=== PATIENT | female | born 1970 | race Caucasian/White ===

== ENCOUNTER 2018-03-15 14:01 | Emergency (ER) | payer SELFPAY ==
[2018-03-15 14:13] VITALS: BP 185/83; BMI 45.4
--- NOTE | 2018-03-15 14:38 | DR.HYPOGLY ---
HPI - Time Seen Time seen: 14:35 - PCP Primary Care Physician: NATALIE GÓMEZ - Complaint Chief Complaint Doctors Comments: Patient with a history of hyperglycemia not being controlled with diet and on metformin. Chief Complaint:: PT WAS PLACED ON METFROMIN 3 YEARS AGO S/P KNEE REPLACEMENT AND PT STATES " I HAVE BEEN TAKING THESES MEDS AND GETTING REFILL'S AND I HAVE BEEN THIRSTY, BLURRED VISION AND I BOUGHT A BLOOD SUGAR MACHINE ON SUNDAY AND BLOOD SUGARS HAVE BEEN FLUCUTING BETWEEN 400-600 "..BR Self Treatment fo Chief Complaint: REGULAR DOSE OF MEFORMIN, - Source History Provided: Patient - Mode of Arrival Mode of Arrival: Ambulatory - Timing Onset of Chief Complaint: 03/12/18 PMH - PMH Past Medical History: Yes Past Medical History: Diabetes, Hypertension Past Surgical History: Yes Surgical History: [employer] Surgery, Ortho Surgery Past Surgical History Comment: LEFT KNEE REPLACEMENT. - Family History History of Family Medical Conditions: Yes Family Medical History: Diabetes Mellitus, Cancer, OR, Heart Failure, Hypertension Family Medical History Comment: HEART, - Social History Does patient currently use any type of tobacco product: No Have you used tobacco products in the last 12 months: No Type of Tobacco Use: None Does any household member use tobacco: No Alcohol Use: None Do you use any recreational Drugs:: No Lives With: Family Lives Where: Home - infectious screening In the last 2 months have you had wt loss of >10#?: NO Have you had fever, night sweats or hemotysis?: No Have you traveled outside the country in the last 6 months?: No Isolation: Standard ROS - Review of Systems Eyes: No Symptoms Reported ENTM: No Symptoms Reported Respiratoy: No Symptoms Reported Cardiovascular: No Symptoms Reported Gastrointestinal/Abdominal: No Symptoms Reported Genitourinary: No Symptoms Reported Neurological: No Symptoms Reported Musculoskeletal: No Symptoms Reported Integumentary: No Symptoms Reported Hematologic/Lymphatic: No Symptoms Reported Endocrine: No Symptoms Reported Psychiatric: No Symptoms Reported All Other Systems: Reviewed and Negative PE - Vital Signs Vitals: Temperature 98.2 F Pulse Rate 70 Respiratory Rate 20 Blood Pressure [Left Arm] 155/85 Blood Pressure [Right Arm] 139/62 Blood Pressure 185/83 O2 Sat by Pulse Oximetry 95 - General Limitations: No Limitations General Appearance: Alert - Eyes Eye exam: Normal Appearance, PERRL, EOMI Pupils: Regular, Round: Bilateral Sclera/Conjunctival: Normal Inspection: Bilateral - ENT ENT Exam: Normal Exam, Normal Oropharynx Nose Exam: Normal Nose Exam Mouth Exam: Normal Inspection Throat Exam: Normal Inspection - Neck Neck Exam: Normal Inspection - Chest Chest Inspection: Normal Inspection - Respiratory Respiratory Exam: Normal Lung Sounds Bilat Respiratory Exam: Bilateral Clear to Auscultation - Cardiovascular Cardiovascular Exam: Regular Rate, Normal Rhythm - Abdominal Exam Abdominal Exam: Normal Inspection, Normal Bowel Sounds Abdominal Tenderness: negative: RUQ, RLQ, LUQ, LLQ, Epigastrium, Suprapubic, Diffuse, Mild, Moderate, Severe, Other - Extremities Extremities Exam: Normal Inspection, Full ROM - Back Back Exam: Normal Inspection, Full ROM - Neurologic Neurological Exam: Alert, Oriented X3, CN II-XII Intact Cranial Nerve Exam: EOM Function (II, III, IV, ): Normal Cerebellar Function: Finger to Nose: Normal Cerebellar Function: Normal Gait, Wide-Based Gait Motor Strength - LUE: 3/5 Motor Strength - RUE: 3/5 Motor Strength - LLE: 3/5 Sensory Exam Upper Extremity: Light Touch: Normal Sensory Exam Lower Extremity: Light Touch: Normal DTR: achilles tendon (L): 2+ - Psychiatric Psychiatric Exam: Normal Affect, Normal Mood - Skin Skin Exam: Warm, Dry, Intact ROR - Labs Reviewed Result Diagrams: 03/15/18 14:41 03/15/18 14:41 Laboratory: WBC 7.3 X10^3/uL (3.6-10.0) 03/15/18 14:41 RBC 5.09 X10^6/uL (3.5-5.4) 03/15/18 14:41 Hgb 16.0 g/dL (12.0-16.0) 03/15/18 14:41 Hct 46.3 % (36.0-47.0) 03/15/18 14:41 MCV 90.9 fL (80.0-100.0) 03/15/18 14:41 MCH 31.5 pg (27.0-34.0) 03/15/18 14:41 MCHC 34.6 g/dL (33.0-35.0) 03/15/18 14:41 RDW 12.7 % (11.6-16.5) 03/15/18 14:41 Plt Count 212 X10^3/uL (150.0-450.0) 03/15/18 14:41 MPV 10.2 fL (7.4-11.0) 03/15/18 14:41 Neut % (Auto) 68.5 % (42.0-75.0) 03/15/18 14:41 Lymph % (Auto) 21.4 % (21.0-51.0) 03/15/18 14:41 [place] % (Auto) 5.6 % (0.0-13.0) 03/15/18 14:41 Eos % (Auto) 3.5 % (0.9-2.9) H 03/15/18 14:41 Baso % (Auto) 1.0 % (0.2-1.0) 03/15/18 14:41 Neut # (Auto) 5.0 x10^3/uL (2.2-4.8) H 03/15/18 14:41 Lymph # (Auto) 1.6 X10^3/uL (1.3-2.9) 03/15/18 14:41 [place] # (Auto) 0.4 x10^3/uL (0.3-0.8) 03/15/18 14:41 Eos # (Auto) 0.3 x10^3/uL (0.0-0.2) H 03/15/18 14:41 Baso # (Auto) 0.1 X10^3/uL (0.0-0.1) 03/15/18 14:41 Absolute Nucleated RBC 0.1 /100WBC 03/15/18 14:41 Sodium 134 mmol/L (136-145) L 03/15/18 14:41 Corrected Sodium 142 mmol/L (136-145) 03/15/18 14:41 Potassium 4.3 mmol/L (3.5-5.1) 03/15/18 14:41 Chloride 97 mmol/L (98-107) L 03/15/18 14:41 Carbon Dioxide 25.7 mmol/L (21-32) 03/15/18 14:41 BUN 18 mg/dL (7-18) 03/15/18 14:41 Creatinine 0.98 mg/dL (0.55-1.02) 03/15/18 14:41 Est GFR (MDRD) Af Amer > 60 (>60) 03/15/18 14:41 Est GFR (MDRD) Non-Af > 60 (>60) 03/15/18 14:41 Glucose 435 mg/dL (65-99) H 03/15/18 14:41 POC Glucose (mg/dL) 327 mg/dL (65-99) H 03/15/18 16:47 Hemoglobin A1c 10.3 % 03/15/18 14:41 Calcium 8.8 mg/dL (8.5-10.1) 03/15/18 14:41 Corrected Calcium TNP 03/15/18 14:41 Total Bilirubin 0.50 mg/dL (0.2-1.0) 03/15/18 14:41 AST 102 Units/L (15-37) H 03/15/18 14:41 ALT 100 Units/L (12-78) H 03/15/18 14:41 Alkaline Phosphatase 116 Units/L (46-116) 03/15/18 14:41 Total Protein 7.9 g/dL (6.4-8.2) 03/15/18 14:41 Albumin 4.2 g/dL (3.4-5.0) 03/15/18 14:41 Globulin 3.7 g/dL (2.5-4.5) 03/15/18 14:41 Albumin/Globulin Ratio 1.1 Ratio (1.1-2.1) 03/15/18 14:41 Specimen Type Clean catch urine 03/15/18 15:44 Urine Color Yellow (YELLOW) 03/15/18 15:44 Urine Appearance Clear (CLEAR) 03/15/18 15:44 Urine pH 5.0 (5.0 - 8.0) 03/15/18 15:44 Ur Specific [place] 1.010 (1.000-1.030) 03/15/18 15:44 Urine Protein Negative (NEGATIVE) 03/15/18 15:44 Urine Glucose (UA) 4+ (NEGATIVE) 03/15/18 15:44 Urine Ketones Negative (NEGATIVE) 03/15/18 15:44 Urine Occult Blood Negative (NEGATIVE) 03/15/18 15:44 Urine Nitrite Negative (NEGATIVE) 03/15/18 15:44 Urine Bilirubin Negative (NEGATIVE) 03/15/18 15:44 Urine Urobilinogen Normal (NORMAL) 03/15/18 15:44 Ur Leukocyte Esterase Negative (NEGATIVE) 03/15/18 15:44 - Diagnosis Discharge Problem: Hyperglycemia - Discharge Plan Condition: Stable - Follow ups/Referrals Follow ups/Referrals: ROSEMARY MOHR [Primary Care Provider] - 3 days - Instructions
[2018-03-15] MEDS ORDERED: NS 1000 ML 1,000 ML IV ONE (15:38)
[2018-03-15] MEDS ORDERED: NS 1000 ML 1,000 ML ONE (15:39)
[2018-03-15 16:02] LABS: BASOPHILS # (AUTO) 0.1 X10^3/uL (0.0-0.1); EOSINOPHILS # (AUTO) 0.3 x10^3/uL (0.0-0.2); EOSINOPHILS % (AUTO) 3.5 % (0.9-2.9); HEMATOCRIT 46.3 % (36.0-47.0); LYMPHOCYTES # (AUTO) 1.6 X10^3/uL (1.3-2.9); LYMPHOCYTES % (AUTO) 21.4 % (21.0-51.0); MEAN CORPUSCULAR HEMOGLOBIN 31.5 pg (27.0-34.0); MEAN CORPUSCULAR HGB CONC 34.6 g/dL (33.0-35.0); MEAN CORPUSCULAR VOLUME 90.9 fL (80.0-100.0); MEAN PLATELET VOLUME 10.2 fL (7.4-11.0); MONOCYTES # (AUTO) 0.4 x10^3/uL (0.3-0.8); MONOCYTES % (AUTO) 5.6 % (0.0-13.0); NEUTROPHILS % (AUTO) 68.5 % (42.0-75.0); PLATELET COUNT 212 X10^3/uL (150.0-450.0); RED BLOOD COUNT 5.09 X10^6/uL (3.5-5.4); RED CELL DISTRIBUTION WIDTH 12.7 % (11.6-16.5); WHITE BLOOD COUNT 7.3 X10^3/uL (3.6-10.0)
[2018-03-15 16:06] LABS: BILIRUBIN,URINE NEGATIVE (NEGATIVE); BLOOD/HEMOGLOBIN,URINE NEGATIVE (NEGATIVE); GLUCOSE, URINE 4+ (NEGATIVE); KETONES,URINE NEGATIVE (NEGATIVE); LEUKOCYTE ESTERASE ,URINE NEGATIVE (NEGATIVE); NITRITES,URINE NEGATIVE (NEGATIVE); PROTEIN,URINE NEGATIVE (NEGATIVE); UROBILINOGEN,URINE NORMAL (NORMAL)
[2018-03-15 16:08] LABS: APPEARANCE,URINE CLEAR (CLEAR); COLOR,URINE YELLOW (YELLOW)
[2018-03-15 16:16] LABS: ALANINE AMINOTRANSFERASE 100 Units/L (12-78); ALBUMIN 4.2 g/dL (3.4-5.0); ALKALINE PHOSPHATASE 116 Units/L (46-116); ASPARTATE AMINO TRANSFERASE 102 Units/L (15-37); BLOOD UREA NITROGEN 18 mg/dL (7-18); CALCIUM 8.8 mg/dL (8.5-10.1); CARBON DIOXIDE 25.7 mmol/L (21-32); CHLORIDE 97 mmol/L (98-107); COR NA(FOR HYPERGLY) 142 mmol/L (136-145); CREATININE 0.98 mg/dL (0.55-1.02); SODIUM 134 mmol/L (136-145); TOTAL PROTEIN 7.9 g/dL (6.4-8.2); eGFR BLACK RACES > 60 (>60); eGFR NON BLACK RACES > 60 (>60)
[2018-03-15 16:18] LABS: HEMOGLOBIN A1C 10.3 %
== END 2018-03-15 17:51 | disposition home or self-care (01) ==
LOC: ER 14:18
DX: R73.9 Hyperglycemia, unspecified (principal)
CPT/HCPCS: 36415; 80053; 81003; 82947; 83036; 85025; 96365; 99282; 99283